=== PATIENT | male | born 1975 | race Two or more races ===

== ENCOUNTER 2025-03-21 13:52 | Emergency (ER) | payer OTHER ==
[2025-03-21 14:03] VITALS: BP 115/69; PULSE 65; RESP 16; TEMP 98.2; BMI 29.5
[2025-03-21 14:45] LABS: ABSOLUTE IMMATURE GRANULOCYTES 0.01 x10^3/uL (0.0-0.031); BASOPHILS # 0.03 x10^3/uL (0.01-0.08); EOSINOPHIL % 9.1 % (0.8-7.0); EOSINOPHILS # 0.24 x10^3/uL (0.04-0.54); HEMATOCRIT 40.5 % (40.1-51.0); HEMOGLOBIN 13.9 g/dL (13.7-17.5); MCHC 34.3 g/dl (32.3-36.5); MEAN CELL VOLUME 91.4 fl (79.0-92.2); MEAN PLT VOLUME 9.3 fl (9.4-12.4); MONOCYTE # 0.38 x10^3/uL (0.30-0.82); MONOCYTE % 14.4 % (5.3-12.2); PLATELET COUNT 208 x10^3/uL (163-337); RDW 11.9 % (12.2-16.1)
[2025-03-21] MEDS ORDERED: LIDOCAINE 4% PATCH TP ONE (14:47)
[2025-03-21] MEDS: LIDOCAINE 4% PATCH TP ONE (14:49)
[2025-03-21 15:07] LABS: POTASSIUM 4.5 mmol/L (3.5-5.1)
[2025-03-21 15:09] LABS: ALBUMIN 3.8 g/dl (3.4-5.0); BLOOD UREA NITROGEN 23.2 mg/dL (7-18); CALCIUM 9.5 mg/dL (8.5-10.1)
[2025-03-21 15:13] LABS: CREATININE 2.1 mg/dL (0.55-1.3)
[2025-03-21 15:14] LABS: BILIRUBIN,TOTAL 0.6 mg/dL (0.2-1); TOT PROT 6.9 g/dl (6.4-8.2)
[2025-03-21] MEDS ORDERED: LIDOCAINE PATCH REMOVAL MC SCH (22:00)
[2025-03-22 23:08] LABS: HIV INTERPRETATION NEGATIVE (NEGATIVE)
[2025-03-22 23:09] LABS: HCV DIAGNOSTIC IN-HOUSE W/RFLX NON-REACTIVE (NONREACTIVE)
== END 2025-03-21 16:21 | disposition home or self-care (01) ==
LOC: JER 13:52
DX: R07.2 Precordial pain (principal)
CPT/HCPCS: 36415; 71045-TC-FY; 80053; 83735; 84484; 85025; 86803; 87389; 93005; 93010; 99285-25